=== PATIENT | male | born 1960 | race African-American/Black ===

== ENCOUNTER 2019-08-15 16:34 | Outpatient (CLI) | payer OTHER ==
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
== END 2019-08-15 18:34 | disposition home or self-care (01) ==
LOC: CAT 16:34
DX: K80.20 Calculus of gallbladder without cholecystitis without obstruction (principal); N28.1 Cyst of kidney, acquired; Z98.1 Arthrodesis status; M51.36 Other intervertebral disc degeneration, lumbar region; Z96.642 Presence of left artificial hip joint
CPT/HCPCS: 72131